=== PATIENT | female | born 1990 | race Two or more races ===

== ENCOUNTER → 2016-12-11 | Outpatient (CLI) | payer MEDICAID ==
[~2016-12-11] MED LIST: GADOBUTROL 10 ML VIAL IVP ONE
== END ==
LOC: FIMAGING 12:22
PROVIDERS: ATTEND Internal Medicine Hematology & Oncology
DX: Z12.39 Encounter for other screening for malignant neoplasm of breast (principal); Z15.01 Genetic susceptibility to malignant neoplasm of breast
CPT/HCPCS: 0159T; A9585; C8908

== ENCOUNTER → 2017-01-07 | Outpatient (CLI) | payer MEDICAID | LOC: FIMAGING 14:58 | PROVIDERS: ATTEND Internal Medicine Hematology & Oncology | DX: N60.11 Diffuse cystic mastopathy of right breast (principal); Z15.01 Genetic susceptibility to malignant neoplasm of breast; Z80.3 Family history of malignant neoplasm of breast ==

== ENCOUNTER → 2017-06-18 | Outpatient (CLI) | payer MEDICAID, OTHER | LOC: FIMAGING 13:20 | PROVIDERS: ATTEND Internal Medicine Hematology & Oncology | DX: D24.1 Benign neoplasm of right breast (principal); Z15.01 Genetic susceptibility to malignant neoplasm of breast ==

== ENCOUNTER → 2018-01-14 | Outpatient (CLI) | payer MEDICAID, OTHER | LOC: FIMAGING 12:16 | PROVIDERS: ATTEND Internal Medicine Hematology & Oncology | DX: Z12.39 Encounter for other screening for malignant neoplasm of breast (principal); Z80.3 Family history of malignant neoplasm of breast; Z80.41 Family history of malignant neoplasm of ovary | CPT/HCPCS: 0159T; 77059; A9585; C8908 ==

== ENCOUNTER → 2018-07-11 | Outpatient (CLI) | payer OTHER, MEDICAID | LOC: FIMAGING 09:49 ==